=== PATIENT | female | born 1935 | race Caucasian/White ===

== ENCOUNTER → 2023-09-22 08:56 | Outpatient (REF) | payer MEDICARE, OTHER, SELFPAY ==
[2023-09-22 10:11] LABS: ALT (SGPT) 17 U/L (0-35); AST (SGOT) 23 U/L (14-36); Albumin 4.2 g/dl (3.5-5.0); Alkaline Phosphatase 84 U/L (38-126); Blood Urea Nitrogen 18 mg/dl (7-17); Calcium 9.6 mg/dl (8.4-10.2); Carbon Dioxide 24 mmol/L (22-30); Chloride 102 mmol/L (98-107); Glucose 109 mg/dl (70-99); Potassium 4.7 mmol/L (3.5-5.1); Sodium 136 mmol/L (135-145); Total Bilirubin 0.6 mg/dl (0.2-1.3); Total Protein 6.9 g/dl (6.3-8.2); eGFR > 60.00
== END ==
LOC: REG 08:56
PROVIDERS: ATTENDING PHYSICIAN Family Medicine
DX: I10 Essential (primary) hypertension (principal); E11.9 Type 2 diabetes mellitus without complications; I71.21 Aneurysm of the ascending aorta, without rupture
CPT/HCPCS: 36415; 80053; 83036

== ENCOUNTER 2023-12-08 07:30 | Inpatient (IN) | payer MEDICARE, OTHER, SELFPAY ==
[2023-12-08] VITALS (13 sets, daily range): BP systolic 102–142; BP diastolic 50–84; BMI 29.7
--- NOTE | 2023-12-08 04:09 | ED.GENMED ---
History of Present Illness
<Raul Peres, DO - Last Filed: 12/08/23 04:57>
General
Chief Complaint: Heart Rate Problem
Time Seen by Provider: 12/08/23 04:07
<Kiki Soriano DO, Resident - Last Filed: 12/08/23 05:05>
General
Source: patient and ambulance crew
Exam Limitations: clinical condition
Nursing documentation reviewed up to this point in time: agreed with
History of Present Illness
History of Present Illness:
Ms. Niesha Mccartney is a 88yo F pmh HTN, DM, aortic stenosis, and mitral regurgitation arriving to the ED via EMS for chest pain. Pt awoke at 00:30 with L chest pain and SOB. Per EMS, pt was in new-onset afib w HR 90-140s, 97% SpO2 on room air. She
felt nauseous but did not vomit. She feels 'tired and worn out,' with LOAIZA, dizziness, lightheadedness. Pt kept repeating that she feels tired and worn out when asked further questions.
Past History
<Kiki Soriano DO, Resident - Last Filed: 12/08/23 05:05>
Past History
ED Past Medical History: Cancer, GERD, HTN, NIDDM, Valvular disease and Other (Carcinoma the uterus with resection, prediabetes, lumbar radiculopathy)
ED Past Surgical History: Gynecological and Orthopedic
Social History
Tobacco: Non-smoker
Alcohol: Occasional
Family History
Family History: Hypertension
Review of Systems
<Kiki Soriano DO, Resident - Last Filed: 12/08/23 05:05>
Review of Systems
Allergies reviewed?: Yes
All Other Systems: ROS reviewed and negative except as documented in HPI and ROS
Phy Exam
<Kiki Soriano DO, Resident - Last Filed: 12/08/23 05:05>
General Physical Exam
General Presentation: mild distress
General age: appears stated age
General Skin: warm and dry
General Habitus: elderly
General Mental: alert
Cardiovascular Exam
Cardiovascular Exam: no edema, no gallop, no murmur, normal peripheral pulses and irregularly irregular
Heart Sounds: normal
Pulmonary Exam
Pulmonary Exam: lungs clear, no rales, no crackles, no rhonchi, no wheezing, no cough and accessory muscle use
Oxygen Status: room air
Gastrointestinal Exam
Gastrointestinal Exam: normal bowel sounds, non tender, soft, no organomegaly and non distended
Neurological Exam
Neurological Exam: alert, oriented x3, CN II-XII intact and speech normal
Scores
<Raul Peres DO - Last Filed: 12/08/23 04:57>
[id number] Score for Afib Stroke Risk
Score: 5
Anticoagulation Recommendations: Recommend anticoagulation (as validated in nonvalvular fib)
<Kiki Soriano DO, Resident - Last Filed: 12/08/23 05:05>
[id number] Score for Afib Stroke Risk
Age in Years (65=0, 65-74=1, >/=75=2): > or = 75
Sex (Female=+1): Female
Congestive Heart Failure History (Yes=+1): No
Hypertension History (Yes=+1): Yes
Stroke/TIA/Thromboembolism History (Yes=+2): No
Vascular Disease History (Yes=+1): No
Diabetes Mellitus (Yes=+1): Yes
Score: 5
Anticoagulation Recommendations: Recommend anticoagulation (as validated in nonvalvular fib)
Course
<Raul Peres DO - Last Filed: 12/08/23 04:57>
Orders/Labs/Results
Orders:
Orders
12/08/23 03:57
EKG [Electrocardiogram (*1)] Urgent
Reason for Study: Chest Pain
12/08/23 03:58
EKG- Treatment ONCE
12/08/23 04:04
Complete Blood Count/With Diff Urgent
Comprehensive Metabolic Panel Urgent
Magnesium Urgent
TSH Reflex To Free T4 Urgent
Comment: ADD ON
Troponin I Routine
12/08/23 04:09
Add On- LAB Urgent
Tests Added?: magnesium level, TSH reflex free T4
Diltiazem HCl [Cardizem] 20 mg IV NOW STA
12/08/23 04:56
Aspirin Chewable [Low Strength Aspirin] 324 mg PO NOW STA
Diltiazem 125 mg/125 ml Nss [Cardizem] 125 mg in 125 ml IV NOW
Initial dose in mg/hr, then titrate:: 5
Titrate to keep:: Heart rate 80-100 bpm
Titrate by mg/hr:: 5 mg/hr
Frequency of titrations (minutes):: 15
Maximum dose in mg/hr:: 15
Abnormal Lab Results
12/08/23
04:04
RBC 3.77 L 10^6/uL
(4.20-5.40)
Hgb 11.1 L g/dL
(12.0-16.0)
Hct 32.1 L %
(37.0-47.0)
Absolute Lymphs (auto) 1.1 L 10^3/uL
(1.2-3.4)
Lymphocytes % 16.4 L %
(20.5-51.1)
Carbon Dioxide 21 L mmol/L
(22-30)
BUN 21 H mg/dl
(7-17)
Glucose 144 H mg/dl
(70-99)
Troponin I 0.043 H* ng/ml
12/08/23 04:04
12/08/23 04:04
Vital Signs
Initial and Last Documented VS:
Initial Vital Signs
Temp Pulse Resp BP Pulse Ox
97.7 F 129 20 139/84 100
12/08/23 03:58 12/08/23 03:58 12/08/23 03:58 12/08/23 03:58 12/08/23 03:58
Last Documented Vital Signs
Temp Pulse Resp BP Pulse Ox
97.7 F 103 18 139/84 98
12/08/23 03:58 12/08/23 04:45 12/08/23 04:45 12/08/23 04:12 12/08/23 04:45
<Kiki Soriano DO, Resident - Last Filed: 12/08/23 05:05>
Orders/Labs/Results
Orders:
Orders
12/08/23 03:57
EKG [Electrocardiogram (*1)] Urgent
Reason for Study: Chest Pain
12/08/23 03:58
EKG- Treatment ONCE
12/08/23 04:04
Complete Blood Count/With Diff Urgent
Comprehensive Metabolic Panel Urgent
Magnesium Urgent
TSH Reflex To Free T4 Urgent
Comment: ADD ON
Troponin I Routine
12/08/23 04:09
Add On- LAB Urgent
Tests Added?: magnesium level, TSH reflex free T4
Diltiazem HCl [Cardizem] 20 mg IV NOW STA
12/08/23 04:56
Aspirin Chewable [Low Strength Aspirin] 324 mg PO NOW STA
Diltiazem 125 mg/125 ml Nss [Cardizem] 125 mg in 125 ml IV NOW
Initial dose in mg/hr, then titrate:: 5
Titrate to keep:: Heart rate 80-100 bpm
Titrate by mg/hr:: 5 mg/hr
Frequency of titrations (minutes):: 15
Maximum dose in mg/hr:: 15
Abnormal Lab Results
12/08/23
04:04
RBC 3.77 L 10^6/uL
(4.20-5.40)
Hgb 11.1 L g/dL
(12.0-16.0)
Hct 32.1 L %
(37.0-47.0)
Absolute Lymphs (auto) 1.1 L 10^3/uL
(1.2-3.4)
Lymphocytes % 16.4 L %
(20.5-51.1)
Carbon Dioxide 21 L mmol/L
(22-30)
BUN 21 H mg/dl
(7-17)
Glucose 144 H mg/dl
(70-99)
Troponin I 0.043 H* ng/ml
12/08/23 04:04
12/08/23 04:04
Vital Signs
Initial and Last Documented VS:
Initial Vital Signs
Temp Pulse Resp BP Pulse Ox
97.7 F 129 20 139/84 100
12/08/23 03:58 12/08/23 03:58 12/08/23 03:58 12/08/23 03:58 12/08/23 03:58
Last Documented Vital Signs
Temp Pulse Resp BP Pulse Ox
97.7 F 103 18 139/84 98
12/08/23 03:58 12/08/23 04:45 12/08/23 04:45 12/08/23 04:12 12/08/23 04:45
<Kiki Soriano DO, Resident - Last Filed: 12/08/23 05:05>
MDM/Problems Addressed
Differential Diagnosis Includes:
acute coronary syndrome, ischemic stroke, thyroid disease, electrolyte imbalance
MDM/Problems Addressed:
Ms. Niesha Mccartney is a 88yo F pmh HTN, DM, aortic stenosis, and mitral regurgitation in the ED for chest pain.
Ischemic stroke is unlikely at this time as there are no focal neurological deficits.
Electrolyte imbalance is not likely as there are no electrolyte abnormalities on CMP, and 2.1 Mg normal
Chronic conditions affecting care: DM, HTN, Previous abdomnial surgery and Cancer
Acute Exacerbation and/or Progression of Chronic Illness: HTN
<Raul Perse DO - Last Filed: 12/08/23 04:57>
*Critical Care Note
Total Time (30-74mins, 75-104mins- exclusive of procedures): 33 min
comment:
The high probability of a clinically significant, sudden or life threatening deterioration of the cardiovascular system(s) required my full and direct attention, intervention and personal management. The aggregate critical care time was 33 minutes.
This time is in addition to time spent performing reported procedures but includes the following:
[x] Data Review and interpretation
[x] Patient assessment and monitoring of vital signs
[x] Documentation
[x] Medication orders and management
<Kiki Soriano DO, Resident - Last Filed: 12/08/23 05:05>
*Pulse Oximetry
Patient hypoxic: no
*EKG
Interpreted by ED Provider?: Yes
Interpretation: normal
Comparison EKG: changes noted
Heart Rate: 142
Rate: tachycardiac
Rhythm: a-fib
Interval: normal QT interval
QRS Pattern: normal QRS
Ischemia: no ischemia
*Diesel Electrician Interpretation
Rate: tachycardiac
Interpretation: abnormal
Heart Rate: 123
Rhythm: a-fib
ED Attending Note
<Raul Peres DO - Last Filed: 12/08/23 04:57>
ED Attending Note
Patient seen and examined by attending physician: Yes
I performed a history and physical exam of patient and discussed management with resident, I reviewed resident's note and agree with documented findings and plan of care.: Yes
ED Attending Note:
I have seen and evaluated the patient with a [id number] encounter. I have spoken to the advance practicer provider and involved in the medical history, the physical exam, medical decision making.
Evaluation and management service: agree unless noted differently below.
Results interpretation: agree unless noted differently below.
Focused HPI: 88-year-old female presenting with generalized fatigue. She has multiple vague complaints such as weakness and chest discomfort. Symptoms started earlier today. 911 was called and they noted that she was in A-fib. Patient denies a
prior history of A-fib.
Physical exam: Sitting in bed comfortably. Tachycardic and irregular.
Medical Decision Making: Patient found to be in new onset A-fib. Will try to chemically cardiovert with IV Cardizem. Given her elevated [id number] score, patient is an anticoagulation candidate. Because it is not certain when symptoms started
and she is not already anticoagulated, she is not a synchronized cardioversion candidate. Will obtain basic blood work including thyroid testing. I did raise my concern that she is already on aspirin 3 times a week. If she does require
anticoagulation, we discussed cessation of aspirin till cleared by cardiology
Update 4:57 AM: Patient did respond to the Cardizem bolus but intermittently becomes tachycardic. Will place on Cardizem drip. Patient given aspirin for elevated troponin. Although it is likely rate related demand ischemia, will give aspirin
admit for further evaluation
<Kiki Soriano DO, Resident - Last Filed: 12/08/23 05:05>
-
Portions of this chart may have been created with voice recognition software.� Occasional wrong word or��sound alike� substitutions may have occurred due to the inherent limitations of voice recognition software.
Discharge Plan
Departure
Patient Disposition: Admit
Date of Disposition: 12/08/23
Time of Disposition: 04:57
Admit to: Telemetry
Presentation/result/management discussed w/ accepting /: Hospitalist
Discharge Problem:
New onset a-fib
Prescriptions:
No Action
aspirin 325 MG tablet
325 mg PO Q48H
mupirocin 1 APPLIC ointment
1 applic intranasal BID PRN (Reason: Infection)
Patient Comments:
last took 10/11/19 at 0800
lisinopril 20 MG tablet
30 mg PO DAILY
Rx Instructions:
*HOLD SYSTOLIC BLOOD PRESSURE <130
Interventions
Interventions:
*Risk Screen - Suicide Last Done: 12/08/23 03:58
*General Assessment Last Done: 12/08/23 03:58
*Neglect/Abuse Screening Last Done: 12/08/23 03:58
ED- Fall Risk Assessment Last Done: 12/08/23 04:09
*ED COVID-19 Vaccine History Last Done: 12/08/23 04:26
ED- Cardiac Assessment Last Done: 12/08/23 04:25
ED- Pulmonary Assessment Last Done: 12/08/23 04:25
Discharge Date and Time
Print Language: SCOTTISH
[2023-12-08] MEDS: CARDIZEM 20 MG IV (04:12)
[2023-12-08 04:20] LABS: % Basophils 0.8 % (0-2); % Eosinophils 1.7 % (0-6); % Immature Granulocytes 0.3 % (0-0.5); % Lymphocytes 16.4 % (20.5-51.1); % Monocytes 7.7 % (1.7-9.3); % Neutrophils 73.1 % (42.2-75.2); Absolute Basophils 0.1 10^3/uL (0-0.2); Absolute Eosinophils 0.1 10^3/uL (0-0.7); Absolute Lymphocytes 1.1 10^3/uL (1.2-3.4); Absolute Monocytes 0.5 10^3/uL (0.1-0.6); Absolute Neutrophils 4.8 10^3/uL (1.4-6.5); Hematocrit 32.1 % (37.0-47.0); Hemoglobin 11.1 g/dL (12.0-16.0); Mean Corp Hgb Conc. 34.6 g/dL (33.0-37.0); Mean Corpuscular Hgb 29.4 pg (27.0-31.0); Mean Corpuscular Volume 85.1 fL (81.0-99.0); Mean Platelet Volume 9.5 fL (7.4-10.4); Nucleated Red Blood Cells % 0 %; Platelet Count 215 10^3/uL (130-400); Red Blood Cell Count 3.77 10^6/uL (4.20-5.40); Red Cell Dist. Width 13.2 % (11.5-14.5); White Blood Cell Count 6.5 10^3/uL (4.8-10.8)
[2023-12-08 04:37] LABS: ALT (SGPT) 20 U/L (0-35); AST (SGOT) 29 U/L (14-36); Albumin 4.1 g/dl (3.5-5.0); Alkaline Phosphatase 94 U/L (38-126); Blood Urea Nitrogen 21 mg/dl (7-17); Calcium 9.9 mg/dl (8.4-10.2); Carbon Dioxide 21 mmol/L (22-30); Chloride 102 mmol/L (98-107); Estimated Creatinine Clearance 49 ml/min; Glucose 144 mg/dl (70-99); Magnesium 2.1 mg/dl (1.6-2.3); Sodium 139 mmol/L (135-145); Total Bilirubin 0.6 mg/dl (0.2-1.3); Total Protein 6.8 g/dl (6.3-8.2); eGFR > 60.00
[2023-12-08 04:51] LABS: Troponin I 0.043 ng/ml
[2023-12-08] MEDS: LOW STRENGTH ASPIRIN 324 MG PO (05:01)
[2023-12-08] MEDS: CARDIZEM 125 IV (05:01)
[2023-12-08 05:26] LABS: TSH Reflex To Free T4 5.66 uIU/ml (0.47-4.68)
[2023-12-08 06:02] LABS: Free T4 1.82 ng/dl (0.78-2.19)
--- NOTE | 2023-12-08 06:22 | HPS.HSE ---
Family Physician
-
Family Physician: Malgorzata Baker
Chief Complaint
-
Chest pain
History of Present Illness
Disease 88-year-old female with past medical history of hypertension presenting to the emergency department after arousing from sleep with substernal chest discomfort.
Patient reported that she went to sleep in usual state of health and arose 1 hour after attempting to sleep with chest discomfort that radiated to right arm as well as to her back. She felt this was unusual for her and try to get comfortable by
sitting up but the pain persisted. She reportedly had a discomfort for approximately 2 1/2 hours prior to calling EMS. She reports feeling hot. Denies nausea or vomiting. Denies feeling dizzy or lightheaded. She took antacid without any
improvement in her symptoms. Patient denies any prior episodes. She specifically denies any prior episodes of palpitations, exertional chest pain, dyspnea on exertion, significant ankle edema, presyncope or syncope. She has no recent medication
changes. She has been followed by cardiology in the past for mild valvular insufficiency and an echo in february was unchanged from prior 3 years ago. Otherwise denies any intercurrent illnesses blood loss etc.
In the emergency department the patient was afebrile, she was tachycardic to the 140s, blood pressure was initially in the 150s systolic. Oxygen saturation was normal on room air. ECG shows atrial fibrillation with a rapid ventricular response at
a rate of 142. She does have some ST depressions in V3 and V4. Troponin was 0.043. TSH was 5.6. Chemistries were otherwise unremarkable. CBC was unremarkable with a hemoglobin of 11. Pain resolved within few minutes of arrival in the emergency
department likely related to rate changes.
Medical History
Past Medical History
Past Medical History: Reports Cancer (Uterine Ca), HTN and Valvular Disease
Past Surgical History: Reports Cholecystectomy
Social History
Tobacco: Non-smoker
Alcohol: Occasional
Drug: None
Personal:
Living: Alone
Employment: Retired
Family History
Family History: Not pertinent
Allergies / Home Medications
Allergies reflects when Allergies were last updated in [facility]
Home Medications with original date entered in [facility]
Allergy/Medication List:
Allergies
Allergy/AdvReac Type Severity Reaction Status Date / Time
bee venom protein (honey bee) Allergy Unknown Swelling Verified 12/08/23 04:07
atorvastatin Allergy fluttery Verified 12/08/23 04:07
feeling in
chest
latex Allergy Itching Verified 12/08/23 04:07
Home Medications
aspirin 325 mg tablet 325 mg PO Q48H Blood clot prevention/tx 02/21/20
mupirocin 2 % topical ointment 1 applic intranasal BID PRN Infection 02/21/20
lisinopril 20 mg tablet 30 mg PO DAILY Blood pressure 12/08/23
Review of Systems
-
History Source: Patient
Constitutional: Reports No Symptoms
EENT: Reports No Symptoms
Respiratory: Reports No Symptoms
Cardiac: Reports Chest Pain and Diaphoresis
Abdomen/GI: Reports No Symptoms
: Reports No Symptoms
Musculoskeletal: Reports No Symptoms
Skin: Reports No Symptoms
Neurological: Reports No Symptoms
Endocrine: Reports No Symptoms
Hematologic/Lymphatic: Reports No Symptoms
Physical Exam
Vital Signs
Vital Signs
Temp Pulse Resp BP Pulse Ox
97.7 F 119 19 127/83 96
12/08/23 03:58 12/08/23 06:15 12/08/23 06:15 12/08/23 06:00 12/08/23 05:45
Physical Exam
General: Well Developed, Well Nourished, No Apparent Distress, Comfortable and Conversant
HEENT: NormoCephalic, Anicteric, Moist mucous membranes and Atraumatic
Respiratory: Clear
Cardiac: S1/S2, Irregular Rhythm and Tachycardia
Breast: Deferred by me
GI: Soft, Non Tender, Non Distended and Normal Bowel Sounds
Rectal: Deferred by Provider
Genito-urinary: Deferred by me
Musculoskeletal: No Clubbing, No Cyanosis, Edema, Left Lower Extremity (trace) and Edema, Right Lower Extremity (trace)
Skin: Warm
Neuro: AO x 3
Hematologic/Lymphatic: No Lymphadenopathy
Psych: Calm
Laboratory Results
-
12/08/23 04:04
12/08/23 04:04
Laboratory Results
Total Bilirubin 0.6 mg/dl (0.2-1.3) 12/08/23 04:04
AST 29 U/L (14-36) 12/08/23 04:04
ALT 20 U/L (0-35) 12/08/23 04:04
Alkaline Phosphatase 94 U/L (38-126) 12/08/23 04:04
Troponin I 0.043 ng/ml H* 12/08/23 04:04
Data Reviewed
-
Medical Tests (Nuc Med, Echo, EKG etc): Image Personally Visualized and interpreted
Lab Data: Labs Reviewed by me
Old Records: Reviewed
Impression/Plan
-
IMPRESSION:
88 y.o female with hypertension presenting w/ chest pain and found to be in AFIB RVR.
PLAN:
1. AFIB RVR - Rates in the 120s on dilt. No chest pain. Well appearing and hemodynamically stable. No signs of overt CHF. Echo in February with Ef 60-65% and mild concentric LVH. Onset of symptoms at about 12:30am
- admit to telemetry
- continue diltiazem gtt for now as patient rates in the 110s - 120s with chance of spontaneous conversion.
- low threshold for possible cardioversion if rate returns to elevated state as patient had ischemia/chest pain with high rates.
- chads2 = 4, no history of falls, good vision despite macular degeneration and has earing aids. No balance issues. Recommend AC with eliquis pending repeat trop
- keep K , Mag > 4,2
- echo
- cardiology consult.
2. Chest pain - Initial trop 0.043 w/ 3 hours of chest pain from rapid ventricular rate. Type II [place] secondary to rate related demand and supply mismatch.
- aspirin 324 given
- repeat trop 3 hours, if significant rise, AC with heparin gtt initially
- rate control for afib and possible cardioversion if rate related chest pain occurs
- further ischemia testing per cardiology
3. HTN - BP decreased since diltiazem
- hold lisinopril for now
DVT PPX - on ac
Code Status - Full Code
--- NOTE | 2023-12-08 10:44 | CON.CAR ---
Addendum entered and electronically signed by Koby Jansen MD 12/08/23 14:27:
88 female with PMH of PAC's, admitted with chest pain. Was found to be in A fib with RVR, and started on diltiazem drip. Chest pain resolved with rate control of A fib. She converted back to sinus while on diltiazem drip, with an approx 5 sec
conversion pause. Exam with RRR, II/ systolic murmur at RUSB, no edema. TnI 0.899 and pending.
A fib with RVR, new. Paroxysmal. Converted to SR while on diltiazem drip at 15, with 5 sec pause. Stop diltiazem. Will see if she tolerates low dose metoprolol tartrate 12.5mg bid. We discussed the topic of PPM in case issues with bradycardia
persist. Will use heparin drip for AC for now, with eventual transition to eliquis.
Chest pain. Suspect Type II MA in setting of A fib with RVR. Trend trop. Check echo. Heparin drip as we trend trop. Start metoprolol as noted above. We discussed topic of cardiac cath in case she develops recurrent chest pain.
Original Note:
Consultation
Consultation Request
Date/Time Consultation Requested: 12/08/2023 10:30
Date/Time Consultation Performed: 12/08/2023 10:45
Requesting Provider: Dr. Cassidy
Performing Provider: LORETTA Black for Dr. Jansen
Reason for Consultation: Atrial fibrillation with RVR
Medical History
-
Chief Complaint: Chest pain
History of Present Illness:
Niesha Mccartney is an 88-year-old female (formerly known to Dr. Mcclendon), with PACs, PVCs, uterine cancer, hypertension, prediabetes, and mild valvular heart disease who presented to the ER via EMS for chest discomfort. She was lying in bed when she
had the sudden onset of left-sided chest pain. She endorsed associated shortness of breath. She got up to walk to the kitchen to get an an acid. She found herself tripoding on the counter due to her discomfort. She then began sweating and had
pain down her left arm. She called EMS. She was given 324 mg of aspirin. EKG in the ER showed atrial fibrillation with rapid ventricular response and ST depression in anterior leads. She was started on a diltiazem drip. As this consultation
began, she converted with a 4.75 second conversion pause on diltiazem at 15 mg/hr. She was symptomatic and just stated she felt unwell but that has since resolved. She is currently chest pain-free.
Past Medical History
Past Medical History: Arrhythmias (PACs, PVCs), Cancer (Uterine), HTN, NIDDM and Valvular Disease (Mild MR, mild TR)
Past Surgical History: Cholecystectomy
Social History
Tobacco: Non-Smoker
Drug: None
Personal:
Employment: Retired
Family History
Family History: Reviewed & Not Pertinent
Allergies / Home Medications
Allergy/AdvReac Type Severity Reaction Status Date / Time
bee venom protein (honey bee) Allergy Unknown Swelling Verified 12/08/23 04:07
atorvastatin Allergy fluttery Verified 12/08/23 04:07
feeling in
chest
latex Allergy Itching Verified 12/08/23 04:07
�Medication �Instructions �Recorded �Confirmed �Type
aspirin 81 mg tablet,delayed 81 mg PO MoWeFr@0800 12/08/23 12/08/23 History
release
calcium carbonate (Tums) 200 mg PO BIDPRN PRN gerd 12/08/23 12/08/23 History
lisinopril 30 mg tablet 30 mg PO DAILY 12/08/23 12/08/23 History
Review of Systems
-
History Source: Patient
All other systems: Negative unless noted
Constitutional: No Symptoms
EENT: No Symptoms
Respiratory: No Symptoms
Cardiac: No Symptoms
Abdomen/GI: No Symptoms
: No Symptoms
Musculoskeletal: No Symptoms
Skin: No Symptoms
Neurological: No Symptoms
Endocrine: No Symptoms
Hematologic/Lymphatic: No Symptoms
Physical Exam
Vital Signs
Temp Pulse Resp BP Pulse Ox
97.6 F 135 16 139/81 98
12/08/23 10:31 12/08/23 10:31 12/08/23 10:31 12/08/23 10:31 12/08/23 10:31
Lab Results
12/08/23 04:04
12/08/23 04:04
Troponin I 0.043 ng/ml H* 12/08/23 04:04
Physical Exam
General: Well Developed, Well Nourished, No Apparent Distress and Comfortable
HEENT: Normocephalic, Anicteric and Moist Mucous Membranes
Respiratory: Clear and Non Labored Respirations
Cardiac: S1/S2, Regular Rhythm and Peripheral Edema (trace B/L LE)
Breast: Deferred by me
GI: Soft, Non Tender, Non Distended and Normal Bowel Sounds
Rectal: Deferred by Provider
Genito-urinary: No Costovertebral Tender
Musculoskeletal: No Clubbing and No Cyanosis
Skin: Warm and Dry
Neuro: AO x 3
Hematologic/Lymphatic: No Lymphadenopathy
Psych: Calm
Impression / Plan
-
Atrial fibrillation with RVR, new onset
-Was on diltiazem 15mg/hour with ~4.75 second conversion pause, diltiazem gtt stopped
-Oral Anticoagulation: Heparin gtt with eventual transition to Eliquis 5mg BID
-[id number]: score at least 5 (HTN, age 75 or more, Vascular disease, female gender)
-Update echocardiogram
Chest pain - NSTEMI vs Type II
-With associated SOB, nausea, diaphoresis, and left arm pain in RVR
-Trend to peak, initial 0.043
-Start heparin gtt, continue ASA 81mg daily
-Chest pain-free at present
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
Atherosclerosis on CT (thoracic aorta & coronary arteries), start rosuvastatin 20mg daily, continue ASA as above
Pre-diabetes, Hgba1c 5.8%, per primary
Data Reviewed
-
EKG: Report Reviewed by me (Atrial fibrillation with rapid ventricular response, rate 142; atrial fibrillation, rate 99)
Medical Tests (Nuc Med, Echo etc): Report Reviewed by me (Echocardiogram as above)
Labs: Labs Reviewed by me
Old Records: Reviewed (Outpatient cardiology notes)
[2023-12-08 11:24] LABS: Troponin I 0.899 ng/ml
[2023-12-08 12:02] LABS: Glycohemoglobin (HgbA1c) 5.8 % (4.0-5.6)
[2023-12-08 12:03] LABS: HDL Cholesterol 102 mg/dl; LDL Cholesterol, Calculated 105 mg/dl; Total Cholesterol 224 mg/dl (50-199); Triglyceride 86 mg/dl (10-149); Very Low Density Lipoprotein 17 mg/dl (0-30)
--- NOTE | 2023-12-08 12:28 | PTCARENOTE ---
Rec'd pt from ED at 10:30 on TELE monitor in AFIB with HR in the 130's and cardizem infusing at 15mg per hour and VSS (see flowchart). Pt had no complaints of pain or discomfort. At 10:56 pt complained of dizziness and TELE monitor showed a 5.3
second pause and then patient converted in to NSR. Rn immediately turned off IV cardizem, obained EKG with BP (see flowchart), and pt was laid back in a supine position. Rosa Maria BURGOS was notified of conversion and pt is not currently
resting in bed with no discomfort or pain, and denies dizziness. Pt oriented to IVU and familiar with call taveras. Pt resting with call taveras in reach.
[2023-12-08 12:58] LABS: APTT 37.2 Sec (23.4-35.0)
[2023-12-08] MEDS: HEPARIN 4000 UNITS IV (13:10)
[2023-12-08] MEDS: HEPARIN 25000 UNITS/250 ML IV (13:13)
--- NOTE | 2023-12-08 13:25 | W.PN.UPDATE ---
Update Note
Progress Note Update
Patient admitted overnight, H&P from 621 this morning.
I saw the patient at the bedside while in the ED. Tachycardic though otherwise hemodynamically stable and afebrile, on room air.
Heart rate was slightly improved though still irregularly irregular with average response in the range of 100 to 120/min. Per cardiology note, she had a 4.75-second sinus pause followed by conversion to normal sinus rhythm upon their evaluation.
Diltiazem drip was stopped.
She remains on heparin drip, will trend troponin to peak. Plan for updated TTE while here.
Will continue to monitor on telemetry
--- NOTE | 2023-12-08 13:44 | CM ---
spoke to pt in room, she lives alone in a ranch home with 3 steps to enter. she uses a cane, and denies any dc planning needs. plan isf or dc to home when medically stable.
--- NOTE | 2023-12-08 13:45 | CM ---
priced adamstamara- her first month is $258- of that $162 is her deductible, she is aware that she needs to pay down remaining deductible and is agreeable to the cost. her pharm [facility] has it in stock. 30 day free coupon placed in pts red dc folder.
[2023-12-08] MEDS: CRESTOR 20 MG PO (17:31)
--- NOTE | 2023-12-08 17:41 | PTCARENOTE ---
Pt remains in NSR on TELE monitor and with HR in the 70's to 80's. Pt denies any pain or discomfort and agrees to call for staff assistance before getting out of bed. Pt resting in bed and call taveras within reach.
[2023-12-08 18:41] LABS: APTT 142.6 Sec (23.4-35.0)
[2023-12-08 18:55] LABS: Troponin I 0.863 ng/ml
[2023-12-08] MEDS: LOPRESSOR 12.5 MG PO (19:33)
--- NOTE | 2023-12-08 20:25 | PTCARENOTE ---
received pt resting in bed- dgt at bedside POC discussed pt verbalized understanding. on assessment PTT was elevated @ 142.6 so heparin gtt was held for 1 hr per protocol and restarted @ 2000 for 7.5ml. Pt remains in SR at this time.
[2023-12-09] VITALS (12 sets, daily range): BP systolic 117–156; BP diastolic 56–81; BMI 29.4
[2023-12-09 04:06] LABS: % Basophils 0.8 % (0-2); % Immature Granulocytes 0.2 % (0-0.5); % Monocytes 8.7 % (1.7-9.3); % Neutrophils 59.3 % (42.2-75.2); Absolute Eosinophils 0.2 10^3/uL (0-0.7); Absolute Lymphocytes 1.3 10^3/uL (1.2-3.4); Absolute Monocytes 0.4 10^3/uL (0.1-0.6); Absolute Neutrophils 2.9 10^3/uL (1.4-6.5); Hematocrit 28.8 % (37.0-47.0); Hemoglobin 9.6 g/dL (12.0-16.0); Mean Corp Hgb Conc. 33.3 g/dL (33.0-37.0); Mean Corpuscular Hgb 29.2 pg (27.0-31.0); Mean Corpuscular Volume 87.5 fL (81.0-99.0); Mean Platelet Volume 9.8 fL (7.4-10.4); Nucleated Red Blood Cells % 0 %; Platelet Count 197 10^3/uL (130-400); Red Blood Cell Count 3.29 10^6/uL (4.20-5.40); Red Cell Dist. Width 13.4 % (11.5-14.5)
[2023-12-09 04:18] LABS: APTT 135.6 Sec (23.4-35.0)
[2023-12-09 04:22] LABS: Blood Urea Nitrogen 21 mg/dl (7-17); Calcium 8.8 mg/dl (8.4-10.2); Carbon Dioxide 23 mmol/L (22-30); Chloride 104 mmol/L (98-107); Estimated Creatinine Clearance 48 ml/min; Glucose 116 mg/dl (70-99); Potassium 4.3 mmol/L (3.5-5.1); Sodium 138 mmol/L (135-145); eGFR > 60.00
[2023-12-09] MEDS: ASPIR LOW (ENTERIC COATED) 81 MG PO (07:57)
[2023-12-09] MEDS: LOPRESSOR 12.5 MG PO ×2 (07:57→19:25)
--- NOTE | 2023-12-09 09:32 | W.PN.HOSP.TC ---
Addendum entered and electronically signed by Denis Han DO 12/09/23 12:13:
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 Noted to have A-fib with RVR on arrival, baseline bradycardia with concerns for sick sinus syndrome. Pacemaker to be implanted today.
Original Note:
Today's Communication/Plan
-
Plan for cardiac cath at cardiology's discretion
Plan to start DOAC following cath
Continue with metoprolol tartrate twice daily
Assessment / Plan
Assessment / Plan
#New onset atrial fibrillation
-Nonvalvular, [id number] 4; s/p RVR, has since converted to sinus rhythm
-As of this morning her heart rate is NSR at near 60 bpm
-Was started on metoprolol tartrate 12.5 mg twice daily for rate control
-Currently on heparin drip pending potential cath today due to elevated troponin
-Echocardiogram yesterday was with preserved EF, no LA enlargement
Plan
-Plan to start Eliquis 5 mg twice daily when done with procedure
-Continue with metoprolol 12.5 mg twice daily for rate control
-Continue on telemetry while here
#Elevated serum troponin
-Suspect that this is a type II NSTEMI from demand ischemia in context of RVR
-No ischemic changes on ECG here, no ST deviation or STEMI equivalent
-Troponin trend not consistent with ACS, flat trend between second and third sample
-Planning for potential LHC with angiography today
-Plan to transition heparin to Eliquis following procedure
#Hypertension
-Home medications include lisinopril 30 mg
-No known hypertensive systemic diseases
-Blood pressure currently well-controlled
#Moderate mitral regurgitation
-Noted per TTE here, no systolic dysfunction on echo
-No indication for interventions at this time
-Should be monitored with repeat TTE as outpatient
#H/O uterine cancer
-No signs of recurrence, no active treatment
DVT prophylaxis: Heparin drip
Diet: N.p.o. pending cath
CODE STATUS: Full code
Anticipated Discharge: Within 24 hours
Subjective/Interval History
-
Date of Service: December 09, 2023
Seen and examined at bedside. No acute events overnight. AFVSS this morning.
Yesterday she converted to normal sinus rhythm after a 4.5-second pause. Has remained in NSR since that time, heart rate low 60s per minute this morning.
She states she feels well, denies any acute complaints including chest pain, shortness of breath, fevers or chills, palpitations, GI symptoms, urinary issues, abnormal bleeding or bruising, paresthesias or weakness
Objective Data
-
Labs:
Laboratory Results
12/09/23 12/09/23
03:25 12:00
WBC 5.0
Hgb 9.6 L
Hct 28.8 L
Plt Count 197
APTT 135.6 H Cancelled
Sodium 138
Potassium 4.3
Chloride 104
Carbon Dioxide 23
BUN 21 H
Creatinine 0.8
Glucose 116 H
Calcium 8.8
Vital Signs:
Vital Signs
Temp Pulse Resp BP Pulse Ox
97.7 F 62 16 156/56 99
12/09/23 07:38 12/09/23 07:57 12/09/23 07:38 12/09/23 07:57 12/09/23 09:23
I&O
12/08/23 12/09/23 12/10/23
06:59 06:59 06:59
Intake Total 480 / 480
Balance 480 / 480
Review of Systems
-
History Source: Patient
All other systems: Reviewed and negative
Physical Exam
-
General: Well Nourished, No Apparent Distress and Comfortable
HEENT: Normocephalic, Atraumatic and Moist Mucous Membranes
Respiratory: Clear to Auscultation and Non Labored Respirations; Negative Wheezes, Rales or Rhonchi
Cardiac: Regular Rhythm and S1/S2; Negative Murmur, Rub, JVD or Gallop
GI: Soft, Nontender, Nondistended and Normal Bowel Sounds
Musculoskeletal: No Clubbing, No Cyanosis and No Edema
Skin: Warm and Dry; Negative Rash
Neuro: AO x 3, Nonfocal/Grossly Intact and Central Nerve's Intact
Psych: Calm
Data Reviewed
-
Labs: Labs Reviewed by me and Discussed with Patient
--- NOTE | 2023-12-09 09:49 | W.PN.CD ---
Today's Communication / Plan
-
- PPM today
Impression / Plan
-
Tachy Estella syndrome
- AF with RVR and long conversion pause with baseline bradycardia
- Limiting use of rate controlling agents
- Needs CCB or BB for care home
- PPM for tachy estella syndrome. The PPM was discussed in detail with the patient and alternative and risks expalined.
- Pt wants to proceed with PPM.
- Heparin off. Will proceed with PPM in 4 hours.
Atrial fibrillation with RVR, new onset
-Conversion pause - sinus pause of 13 seconds with junctional escape after 5-6 seconds
-Now off Diltiazem gtt and on Metoprolol 12.5 mg BID
- Bradycardiac to 40s
-Oral Anticoagulation: Heparin gtt with eventual transition to Eliquis 5mg BID
-[id number]: score at least 5 (HTN, age 75 or more, Vascular disease, female gender)
- echocardiogram - 12/08/23- LVEF 55-60%. Moderate mitral regurgitation
Chest pain - NSTEMI vs Type II
-Trop peaked at 0.89
-ACS is less likely - related to AF with RVR
-Feeling better in sinus rhythm - no chest pain.
-On Heparin drip - will stop for the need for PPM>
- continue ASA 81mg daily
-Chest pain-free at present
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
Atherosclerosis on CT (thoracic aorta & coronary arteries), o nrosuvastatin 20mg daily, continue ASA as above
Pre-diabetes, Hgba1c 5.8%, per primary
Physical Exam
Vital Signs/Labs
Vital Signs
Temp Pulse Resp BP Pulse Ox
97.7 F 62 16 156/56 99
12/09/23 07:38 12/09/23 07:57 12/09/23 07:38 12/09/23 07:57 12/09/23 09:23
12/08/23 12/09/23 12/10/23
06:59 06:59 06:59
Actual Weight 78 kg 77.7 kg
12/09/23 03:25
12/09/23 03:25
APTT Cancelled 12/09/23 12:00
Magnesium 2.1 mg/dl (1.6-2.3) 12/08/23 04:04
Triglycerides 86 mg/dl (10-149) 12/08/23 10:53
LDL Cholesterol, Calc 105 mg/dl 12/08/23 10:53
VLDL Cholesterol, Calc 17 mg/dl (0-30) 12/08/23 10:53
HDL Cholesterol 102 mg/dl 12/08/23 10:53
Free T4 1.82 ng/dl (0.78-2.19) 12/08/23 04:04
LAB Results
12/08/23 12/08/23 12/08/23
04:04 10:53 18:21
Troponin I 0.043 H* 0.899 H* D 0.863 H*
Physical Exam
Constitutional: No acute distress and Comfortable
EENT: Anicteric and Moist mucous membranes
Cardiovascular: Rhythm & rate is regular, Pedal edema is absent, JVD pressure is normal and Systolic murmur present
Respiratory: Respiratory effort normal, Lungs clear to auscul. and Wheeze Absent
GI: Soft, Non tender and Normal bowel sounds
Neuro/Psych: Alert, Oriented and AO x 3
Data Reviewed
-
Date of Service: December 09, 2023
Medical Decision Making: Reviewed Test Results, Test Interpretation and Review of Case with other Provider
EKG: Tracing Personally Visualized and interpreted
Echo: Report Reviewed by me
Labs: Labs Reviewed by me
Old Records: Reviewed
--- NOTE | 2023-12-09 10:56 | PTCARENOTE ---
Rec'd pt at change of shift. Pt on TELE monitor in NSR, VSS, and AAAO*3. Pt maintained NPO since midnight for permanent pacemaker placement today. Heparin ggt discontinued as per Dr. Reynolds. Pt agreed to call for help before ambulating, now
resting in bed with call taveras in reach.
--- NOTE | 2023-12-09 13:37 | PTCARENOTE ---
report given to label rewinder, patient remains NPO. INT in left arm placed as requested.
[2023-12-09] MEDS: ANCEF 5 IV ×2 (13:55→22:17)
--- NOTE | 2023-12-09 15:05 | ITS.CL.PACE ---
Clinical Engineer - Pacemaker Implant
Pacemaker Implant
Procedure Report:
Dual Chamber Pacemaker Placement:
Ms. Mccartney is a very pleasant 88 yrs old woman with h/o paroxysmal AFIB, baseline bradycardia and long conversion pause with troponin leak and tachy-estella syndrome is recommended for PPM placement.�
Indications: Tachy-estella syndrome
Date of the Procedure: 12/09/2023
Pre-Operative Diagnosis: Tachy-estella syndrome
Post-Operative Diagnosis: Tachy-estella syndrome
Procedure Performed: DUAL CHAMBER PACEMAKER IMPLANTATION
Performing Physician:
Marlene Reynolds MD
Anesthesia:
See anesthesia records
Pre-operative antibiotics:
Ancef 2 gram
Detailed Description of the Procedure:
The patient was identified using hospital identification and informed consent obtained for the procedure. The risks were explained including, but not limited to: Bleeding, infection, arrhythmia, stroke, vascular/cardiac/lung puncture, surgery,
pacemaker dependency/device malfunction. All questions were answered.
The patient was brought to the electrophysiology laboratory in stable condition in fasting state. Continuous electrocardiographic and hemodynamic monitoring was initiated.
The initial rhythm was sinus rhythm.
The procedure site was meticulously prepared with surgical scrub and allowed to dry with no pooling. Sterile draping was applied to cover the procedure site. The image intensifier was draped with sterile bag and positioned over the patient.
A surgical pause and time out was performed immediately prior to the procedure with review of her medical history, recent labs, allergies and medications with site of procedure identified and consent noted in the chart. Antibiotics pre operatively
given. All team members concurred.
The left infraclavicular region was prepped and draped in the usual sterile fashion. Local anesthesia was administered subcutaneously using 1% lidocaine / Bupivacaine. The left cephalic vein cutdown was performed with an incision at the
delto-pectoral groove, and vascular sheaths were introduced for lead access. These were advanced into the right ventricle and the right atrium.
The right ventricular lead was secured in position with an active fixation technique at the septal location.
The RA lead was attached in the right atrial appendage with active fixation in the RAA.
There was excellent sensing, pacing, and impedance from the leads, with no diaphragmatic stimulation at 10 V output.�Bovie cautery, antibiotics, and fluoroscopy were used.
The sheaths were withdrawn, and the thresholds remained acceptable. The leads were secured in position at the venous entry site with 2-0 Ethibond. A pocket was fashioned contiguous to the incision. The electrode terminals were connected to the pulse
generator, which was placed into the pocket. The generator was secured to the underlying fascia.
The wound was irrigated thoroughly with antibiotic solution.
The wound was closed in 3 layers using 2-0 V loc then two layers of 4-0 VLoc sutures to the dermis. Steri-strips were applied externally and covered with Aquacel bandage.
Procedure End:
The procedure was tolerated well.
Estimated Blood loss:
5 cc
Specimens Removed:
No cultures and no specimens were obtained. No intraoperative pathology was identified.
Urine output:
None
Packs / Drains/ Tubes:
None
Instrument / Sponge Count Correct:
Yes
Complications of the Procedure:
None
Condition of Patient at Time of Transfer:
Hemodynamically stable with no neurological or vascular compromise.
Device information:�
Generator: SOAK (Smart Operational [employer] tool[employer])/St Ed; Model: [id number]; Serial #[id number]
Atrial Lead: [place]/St Ed; Model: 2088TC/46; Serial # [id number]
Measured data in the right atrium was sensing of 2.1mV, impedance of 480 ohms and threshold of 0.75V at 0.4ms�
RV Lead: [place]/St Ed; Model: 2088TC/52; Serial # [id number]
Measured data in the RV lead was sensing of >12.0 mV, impedance of 630 ohms and threshold of 0.75 V at 0.4ms�
Estella parameter settings were DDDR 60-120 bpm. �
��������������� Mode Switch: On
��������������� Paced AV interval: 180ms
��������������� Sensed AV interval: 150 ms.
��������������� Rate Adaptive A-V Interval: Off
Summary:
Successful implantation of MRI compatible dual chamber St Ed pacemaker
Results/Recommendations:
-Please follow up CXR�
1. Please provide patient with adequate pain control�
Instructions to be given to patient:�
- Please follow up with [facility] at [address] [place] [address] ([phone]) to get your wound checked within 14 days of your discharge.
- Do not wet incision site until after it is evaluated at cardiology clinic. No soaking or bath until then. Showers or Sponge baths are OK.�Dab dry the area after a shower.
- Do not lift left elbow above shoulder, particularly with sudden jerking movements, for 1 month�
- Do not lift anything weighing more than 10 pounds with the left arm for 1 month�
- If you notice any fevers, shortness of breath, lightheadedness, chest pain, or worsening swelling in the wound site, please contact the arrhythmia clinic, contact your casting operator, or present to the hospital for evaluation.�
Marlene Reynolds MD
Electrophysiology
[2023-12-09] MEDS: CRESTOR 20 MG PO (17:26)
--- NOTE | 2023-12-09 18:36 | PTCARENOTE ---
Rec'd pt back from EP lab after dual chamber permanent pacemaker placement (settings DDDR 60-120). EKG shows patient in NSR, pt on TELE monitor with VSS, and AAAO*3. Pt with L arm immobilizer and L upper chest wall dressing CDI. Pt denies any
pain or discomfort, sitting in bed with call taveras in reach.
--- NOTE | 2023-12-09 23:38 | PTCARENOTE ---
Pt. received at change of shift. Pt. seen and assessed in room. Pt. AOx3, VS WNL. Left chest wall dressing c/d/i with aquacell. Immobilizer on left arm in place. No complaints of pain at this time. Pt. education about keeping left arm immobilized
conducted. Pt. verbalizes understanding. Continuing to monitor the patient at this time.
--- NOTE | 2023-12-10 03:01 | DOWNTIME ---
There was a [employer] Client Loader Technician Downtime on 11/12/2023 from 0100 to 11/12/2023 at 0252. Downtime documentation of patient's care, including medication administrations, has been reconciled in the electronic record per guidelines. Refer to the
patient's paper chart under the miscellaneous tab to see printed paper medication records and downtime forms.
[2023-12-10 03:53] VITALS: BP 139/64
[2023-12-10] MEDS: TYLENOL 650 MG PO (03:56)
[2023-12-10 04:20] LABS: Hematocrit 31.5 % (37.0-47.0); Hemoglobin 10.7 g/dL (12.0-16.0); Mean Corpuscular Hgb 30.6 pg (27.0-31.0); Mean Platelet Volume 9.5 fL (7.4-10.4); Platelet Count 178 10^3/uL (130-400); White Blood Cell Count 6.5 10^3/uL (4.8-10.8)
[2023-12-10 04:45] LABS: Blood Urea Nitrogen 20 mg/dl (7-17); Calcium 9.2 mg/dl (8.4-10.2); Carbon Dioxide 22 mmol/L (22-30); Chloride 105 mmol/L (98-107); Estimated Creatinine Clearance 48 ml/min; Glucose 115 mg/dl (70-99); Potassium 4.5 mmol/L (3.5-5.1); Sodium 138 mmol/L (135-145); eGFR > 60.00
[2023-12-10 08:03] VITALS: BP 165/76
[2023-12-10] MEDS: LOPRESSOR 12.5 MG PO (08:07)
[2023-12-10] MEDS: ASPIR LOW (ENTERIC COATED) 81 MG PO (08:07)
--- NOTE | 2023-12-10 09:50 | W.PN.HOSP.TC ---
Today's Communication/Plan
-
Start Eliquis
Discharge home
Assessment / Plan
Assessment / Plan
#Tachybradycardia syndrome
#New onset atrial fibrillation
-Nonvalvular, [id number] 4; s/p RVR, has since converted to sinus rhythm
-Noted to have sinus pauses, baseline bradycardia concerning for tachybradycardia
-Was seen by EP and permanent pacemaker was placed on 12/09/2023
-Was started on metoprolol tartrate 12.5 mg twice daily for rate control
-Was previous on heparin drip, transition to Eliquis today following PPM
-Echocardiogram was with preserved EF, no LA enlargement
-Continue with metoprolol and Eliquis twice daily at discharge
-Follow-up with dry pan charger in office for pacemaker check
#Elevated serum troponin
-Suspect that this is a type II NSTEMI from demand ischemia in context of RVR
-No ischemic changes on ECG here, no ST deviation or STEMI equivalent
-Troponin trend not consistent with ACS, flat trend between second and third sample
-Can consider outpatient ischemic workup with cardiology
#Hypertension
-Home medications include lisinopril 30 mg
-No known hypertensive systemic diseases
-Blood pressure currently well-controlled
#Moderate mitral regurgitation
-Noted per TTE here, no systolic dysfunction on echo
-No indication for interventions at this time
-Should be monitored with repeat TTE as outpatient
#H/O uterine cancer
-No signs of recurrence, no active treatment
DVT prophylaxis: Eliquis
Diet: N.p.o. pending cath
CODE STATUS: Full code
Anticipated Discharge: Today
Subjective/Interval History
-
Date of Service: December 10, 2023
Seen and examined at the bedside. No acute events overnight. AFVSS this morning.
She had successful pacemaker placement with electrophysiology yesterday. Denies any issues following the procedure.
She denies chest pain, shortness of breath, fevers or chills, lightheadedness, GI issues, urinary issues, abnormal bleeding or bruising, paresthesias or weakness.
States she feels ready to leave the hospital
Objective Data
-
Labs:
Laboratory Results
12/10/23 12/10/23
04:03 04:04
WBC 6.5
Hgb 10.7 L
Hct 31.5 L
Plt Count 178
Sodium 138
Potassium 4.5
Chloride 105
Carbon Dioxide 22
BUN 20 H
Creatinine 0.8
Glucose 115 H
Calcium 9.2
Vital Signs:
Vital Signs
Temp Pulse Resp BP Pulse Ox
97.4 F 68 20 139/64 99
12/10/23 07:57 12/10/23 05:00 12/10/23 07:57 12/10/23 03:53 12/10/23 08:53
I&O
12/09/23 12/10/23 12/11/23
06:59 06:59 06:59
Intake Total 480 / 480 480 / 480
Balance 480 / 480 480 / 480
Review of Systems
-
History Source: Patient
All other systems: Reviewed and negative
Physical Exam
-
General: Well Nourished, No Apparent Distress and Comfortable
HEENT: Normocephalic, Atraumatic, Moist Mucous Membranes and Anicteric
Respiratory: Clear to Auscultation and Non Labored Respirations; Negative Wheezes, Rales or Rhonchi
Cardiac: Regular Rhythm, S1/S2 and Other (Pacemaker site without surrounding erythema or signs of purulence); Negative Murmur, Rub, JVD or Gallop
GI: Soft, Nontender, Nondistended and Normal Bowel Sounds
Musculoskeletal: No Clubbing, No Cyanosis and No Edema
Skin: Warm, Dry and Normal Turgor; Negative Rash, Lesions or Jaundice
Neuro: AO x 3, Nonfocal/Grossly Intact and Central Nerve's Intact
Psych: Calm
Data Reviewed
-
Labs: Labs Reviewed by me and Discussed with Patient
--- NOTE | 2023-12-10 10:00 | W.DCSUMMARY ---
Discharge Summary
Discharge Data
Date of Admission: 12/08/23
Date of Discharge: 12/10/23
-
Pending Results: No
Hospital Course
88-year-old female with hypertension and mitral regurgitation, H/O uterine cancer not receiving current therapy that presented to the hospital with accelerated heart rate, new onset A-fib with RVR. Was put on to diltiazem drip and IV heparin drip
initially. With diltiazem she had chemical cardioversion on day 1 of hospitalization. Review of telemetry showed sinus pause with cardioversion, other pauses overnight with baseline bradycardia and heart rate in the range of 40 to 60/min.
Electrophysiology recommended permanent pacemaker for tachycardia-bradycardia syndrome. Pacemaker was placed on 12/09/2023 without any complications.
She did have elevated troponin on arrival without any ECG findings concerning for ischemia. Denied any chest pain as well. Troponin trend was ultimately not consistent with ACS and more likely related to type II demand ischemia in the context of
her accelerated heart rate. Echocardiogram without wall motion abnormality or compromised systolic function. Heparin drip was transitioned to Eliquis for anticoagulation and A-fib. [id number] score 4.
New discharge medications: Metoprolol tartrate 12.5 mg twice daily, Eliquis 5 mg twice daily, rosuvastatin 20 mg nightly, as needed nitroglycerin tablets
Follow-ups encouraged with PCP and cardiology referral
Discharge Plan
-
Patient Disposition: Home (Routine Discharge)
Discharge Diagnosis/Procedures: Pacemaker implant
Tachycardia-bradycardia syndrome
New onset atrial fibrillation
Elevated serum troponin
Condition: Good
Diet: No restrictions
Activity: As tolerated
Driving Restrictions: No driving for 1 week
Bathing Restrictions: None
Blood Work: None
Others Tests: Pacemaker checks with healthcare technician in office
Activity Restrictions/Additional Instructions:
Schedule appointment with primary care doctor within 7 days of discharge from the hospital for routine follow-up
Call healthcare technician office to schedule follow-up visit
Instructions: Medicines for atrial fibrillation, Pacemaker
Stand Alone Forms: DC Inst - Implanted Device
Referrals:
Malgorzata Baker MD [Family Provider] -
Osbaldo Temple MD [Active] - 12/18/23 10:40 am (Post device incision check appointment)
Additional Discharge Medication Instructions: Start metoprolol tartrate 12.5 mg twice daily
Start Eliquis 5 mg twice daily
Start rosuvastatin 20 mg nightly
Take nitroglycerin 0.4 mg tablets as needed for chest pain
Prescriptions:
New
rosuvastatin 20 mg Tablet
20 mg PO QPM 30 Days Qty: 30 0RF
Eliquis 5 mg Tablet
5 mg PO BID 30 Days Qty: 60 0RF
metoprolol tartrate 25 mg Tablet
12.5 mg PO BID 30 Days Qty: 30 0RF
nitroglycerin 0.4 mg Tablet, Sublingual
0.4 mg sublingual [id number] PRN (Reason: Chest pain) 7 Days Qty: 10 0RF
Continued
lisinopril 30 mg Tablet
30 mg PO DAILY
aspirin 81 mg Tablet,Delayed Release (Dr/Ec)
81 mg PO MoWeFr@0800
calcium carbonate [Tums] 200 mg calcium (500 mg) Tablet,Chewable
200 mg PO BIDPRN PRN (Reason: gerd)
Discharge Orders:
Discharge Patient (As Directed); Ordered 12/10/23
Ordered By: Deins Han
Care Plan Goals
Care Plan Goals:
Problem: Readiness for enhanced knowledge related to diagnosis and treatment plan
Goal: Understand your diagnosis and treatment plan needs, including medications if applicable.
Instructions: Know your diagnosis, underlying causes and treatment plan options, including medications if applicable. Consult with your health care team to learn about your diagnosis and treatment plan, including medications if applicable.
Discharge Date and Time
Print Language: MALTESE
[2023-12-10] MEDS: ELIQUIS 5 MG PO (10:25)
--- NOTE | 2023-12-10 10:25 | W.PN.CD ---
Today's Communication / Plan
-
OK for home
Stop ASA at the one year contreras, perhaps sooner given age and that we feel AF was the cause of CP/tropoinin
Followup arranged
Increase BB as needed. No worry about bradycardia.
Impression / Plan
-
Sick Sinus Syndrome/Tachy Jose syndrome
- Treated wtih PPM
- Tachy portion (AF RVR, paroxysmal) => Metoprolol for now
Atrial fibrillation with RVR, new onset
-Conversion pause - sinus pause of 13 seconds with junctional escape after 5-6 seconds
-Now off Diltiazem gtt and on Metoprolol 12.5 mg BID
- Bradycardiac to 40s
-Oral Anticoagulation: Heparin gtt with eventual transition to Eliquis 5mg BID
-[id number]: score at least 5 (HTN, age 75 or more, Vascular disease, female gender)
Moderate MR
Chest pain - NSTEMI vs Type II
-Trop peaked at 0.89
-ACS is less likely - related to AF with RVR
-Feeling better in sinus rhythm - no chest pain.
- For now ASA + Eliquis => STOP ASA at ONE YEAR CONTRERAS or sooner if bleeding
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
Atherosclerosis on CT (thoracic aorta & coronary arteries), on rosuvastatin 20mg daily
Pre-diabetes, Hgba1c 5.8%, per primary
Subjective:
No CP or dyspnea
Echo 12/08/2023
Normal biventricular size and systolic function without regional wall motion
abnormality. Estimated LVEF 55-60%.
Moderate mitral regurgitation.
Mild/moderate tricuspid regurgitation. Normal PASP.
Compared to 02/26/23: MR has progressed from mild to moderate. TR has progressed
from mild to mild/moderate.
Physical Exam
Vital Signs/Labs
Vital Signs
Temp Pulse Resp BP Pulse Ox
97.4 F 68 20 139/64 99
12/10/23 07:57 12/10/23 05:00 12/10/23 07:57 12/10/23 03:53 12/10/23 08:53
12/09/23 12/10/23 12/11/23
06:59 06:59 06:59
Actual Weight 77.7 kg
12/10/23 04:04
12/10/23 04:03
APTT Cancelled 12/09/23 12:00
Magnesium 2.1 mg/dl (1.6-2.3) 12/08/23 04:04
Triglycerides 86 mg/dl (10-149) 12/08/23 10:53
LDL Cholesterol, Calc 105 mg/dl 12/08/23 10:53
VLDL Cholesterol, Calc 17 mg/dl (0-30) 12/08/23 10:53
HDL Cholesterol 102 mg/dl 12/08/23 10:53
Free T4 1.82 ng/dl (0.78-2.19) 12/08/23 04:04
LAB Results
12/08/23 12/08/23 12/08/23
04:04 10:53 18:21
Troponin I 0.043 H* 0.899 H* D 0.863 H*
Physical Exam
Constitutional: No acute distress
EENT: Anicteric
Cardiovascular: Rhythm & rate is regular and Pedal edema is absent
Respiratory: Respiratory effort normal and Lungs clear to auscul.
Other: Cardiac Device Site (no bleed/no hematoma)
Data Reviewed
-
Date of Service: December 10, 2023
[2023-12-10 11:55] VITALS: BP 165/68
--- NOTE | 2023-12-10 12:11 | PTCARENOTE ---
Discharge order in place. Discharge instructions reviewed with patient. No further questions. IV site removed. (L) chest wall aquacell dressing C/D/I. Pt escorted to daughter's car by staff in wheelchair.
--- NOTE | 2023-12-10 13:05 | CM ---
CM following for DC planning needs.
Met w patient at bedside. Pt. anticipating DC soon. Dtr. to transport home.
Pt. offers no concerns or needs at time of DC.
Plan: HOME, no needs.
== END 2023-12-10 12:40 | disposition home or self-care (01) | DRG 242 ==
LOC: IVU 07:30
PROVIDERS: Internal Medicine Cardiovascular Disease; Nurse Practitioner; Nurse Practitioner Gerontology; ADMITTING PHYSICIAN Internal Medicine; ATTENDING PHYSICIAN Internal Medicine; EMERGENCY PHYSICIAN Student in an Organized Health Care Education/Training Program; FAMILY PHYSICIAN Family Medicine; OTHER PHYSICIAN Internal Medicine
PROC: 0JH606Z Insertion of Pacemaker, Dual Chamber into Chest Subcutaneous Tissue and Fascia, Open Approach (ICD-10-PCS; 2023-12-09)
PROC: 02HK3JZ Insertion of Pacemaker Lead into Right Ventricle, Percutaneous Approach (ICD-10-PCS; 2023-12-09)
PROC: 02H63JZ Insertion of Pacemaker Lead into Right Atrium, Percutaneous Approach (ICD-10-PCS; 2023-12-09)
DX: I49.5 Sick sinus syndrome (principal); I21.A1 Myocardial infarction type 2; I10 Essential (primary) hypertension; E11.9 Type 2 diabetes mellitus without complications; I08.0 Rheumatic disorders of both mitral and aortic valves; I48.0 Paroxysmal atrial fibrillation; H35.30 Unspecified macular degeneration; K21.9 Gastro-esophageal reflux disease without esophagitis; M54.16 Radiculopathy, lumbar region; Z79.82 Long term (current) use of aspirin; Z79.899 Other long term (current) drug therapy; Z85.42 Personal history of malignant neoplasm of other parts of uterus; Z90.49 Acquired absence of other specified parts of digestive tract; Z91.040 Latex allergy status
CPT/HCPCS: 33208; 71045; 80048; 80053; 80061; 83036; 83735; 84439; 84443; 84484; 85025; 85027; 85730; 93005; 93306; 96374; 99291; C1785; C1892; C1898